=== PATIENT | male | born 1980 | race Two or more races ===

== ENCOUNTER 2024-07-07 14:09 | Emergency (ER) | payer OTHER ==
[~2024-07-07] VITALS: Ht 180.3 cm; Wt 117.9 kg
[2024-07-07 17:18] LABS: ALBUMIN 4.2 gm/dL (3.4-5.0); BILIRUBIN TOTAL 0.8 mg/dL (0.3-1.2); CALCIUM 8.8 mg/dL (8.5-10.1); CREATININE SERUM 1.18 mg/dL (0.70-1.30); GFR 66.76; GLOBULINA 4.3 G/DL (2.4-3.5); POTASSIUM 3.62 mEq/L (3.5-5.1); TOTAL PROTEIN 8.5 gm/dL (6.4-8.2)
[2024-07-07 17:43] LABS: HEMATOCRIT 50.3 % (39.0-48.0); HEMOGLOBIN 17.2 g/dL (13-16.00); MEAN CELL VOLUME 92.6 fL (80.0-100.00); MEAN CORPUSCULAR HEMOGLOBIN 31.7 pg (27.00-32.0); MEAN CORPUSCULAR HGB CONC 34.2 g/dl (32.0-36.0); PLATELET COUNT 210 K/uL (150-450); RED BLOOD COUNT 5.43 M/uL (4.00-6.00); RED CELL DISTRIBUTION WIDTH 12.8 % (11.5-14.5)
[2024-07-07 18:06] LABS: ERYTHROCYTE SEDIMENTATION RATE 23 mm/hr
[2024-07-07] MEDS ORDERED: BACLOFEN10 MG PO (18:16)
== END 2024-07-07 18:51 | disposition home or self-care (01) ==
LOC: ER 14:12
PROVIDERS: General Practice
DX: R53.81 Other malaise (principal); Z88.6 Allergy status to analgesic agent